=== PATIENT | female | born 1940 | race Caucasian/White ===

== ENCOUNTER 2016-04-18 11:43 | Outpatient (CLI) | payer MEDICARE, BC ==
[2016-04-18 12:43] LABS: Bilirubin Negative (Negative); Blood, Urine Small (Negative); Glucose, Urine (Dipstick) Negative (Negative); Ketone, Urine Negative (Negative); Nitrite Positive (Negative); Protein, Urine (Dipstick) Negative (Neg-Trace); Urobilinogen 0.2 mg/dL (0.2-1.0)
[2016-04-18 14:28] LABS: Bacteria/HPF 1+ HPF (None Seen)
== END 2016-04-18 11:44 | disposition home or self-care (01) ==
LOC: NAVSJIPCSP 11:43
PROVIDERS: ATTEND Internal Medicine
DX: N39.0 Urinary tract infection, site not specified (principal)
CPT/HCPCS: 81003; 81015; 87086